=== PATIENT | female | born 1945 | race Caucasian/White ===

== ENCOUNTER 2017-10-05 10:34 | Outpatient (CLI) | payer MEDICARE | END 2017-10-05 10:35 | disposition home or self-care (01) | LOC: BICMAMMO 10:34 | PROVIDERS: ATTEND Family Medicine | DX: Z12.31 Encounter for screening mammogram for malignant neoplasm of breast (principal); Z80.3 Family history of malignant neoplasm of breast | CPT/HCPCS: 77063; 77067 ==

== ENCOUNTER 2018-07-30 12:58 | Outpatient (CLI) | payer MEDICARE ==
--- NOTE | 2018-07-30 15:50 | ULT ---
BILATERAL RENAL ULTRASOUND: HISTORY: Renal cyst. FINDINGS: Correlation is made with the CT scan of 02/10/2017. The right kidney measures 10.3 cm in length and the left kidney measures 10.1 cm in length. No solid or cystic mass, shadowing calculus, or hydronephrosis is seen on either side. The urinary bladder i s unremarkable with a volume of 252 cc. IMPRESSION: Normal exam. POS: [facility]
--- NOTE | 2018-07-30 15:56 | ULT ---
ULTRASOUND THYROID: DATE: 07/30/2018. HISTORY: Thyroid nodule. COMPARISON: None available. FINDINGS: Isthmus: 0.4 cm anteroposterior. Right lobe: 4.7 x 1.3 x 1.6 cm. Left lobe: 4.7 1.7 x 1.7 cm. The dominant nodule is a 1.9 x 1.3 x 0.9 cm lesion located at the anterior aspect of left lobe mid po le. Composition: Spongiform, 0 points. Echogenicity: Hypoechoic, 2 points. Shape: Wider than tall, 0 points. Margin: Smooth, 0 points. Echogenic foci: None, 0 points. TIRADS category 1: Benign (spongiform nodule). No FNA and no followup necessary. There are a few other nodules that are all less than 1 cm in size, at least 2 in the right mid pole, and at least 2 others in the left mid and upper poles. IMPRESSION: 1. TIRADS category 1: benign. 2. No followup and no fine needle aspiration recommended. POS: [facility]
== END 2018-07-30 12:59 | disposition home or self-care (01) ==
LOC: BICULT 12:58
PROVIDERS: ATTEND Family Medicine
DX: E04.1 Nontoxic single thyroid nodule (principal); N28.1 Cyst of kidney, acquired
CPT/HCPCS: 76536; 76770

== ENCOUNTER 2018-10-08 09:49 | Outpatient (CLI) | payer MEDICARE | END 2018-10-08 09:50 | disposition home or self-care (01) | LOC: BICMAMMO 09:49 | PROVIDERS: ATTEND Obstetrics & Gynecology | DX: Z12.31 Encounter for screening mammogram for malignant neoplasm of breast (principal); Z80.3 Family history of malignant neoplasm of breast | CPT/HCPCS: 77063; 77067 ==

== ENCOUNTER 2019-10-09 11:37 | Outpatient (CLI) | payer MEDICARE ==
--- NOTE | 2019-10-09 12:51 | MMO ---
Bilateral MAMMO Bilat Screen [facility]. CLINICAL HISTORY: Patient is 74 years old and is seen for screening. The patient has the following family history of breast cancer: sister, at age 65. The patient has no personal history of cancer. VIEWS: The views performed were: bilateral craniocaudal with tomosynthesis and bilateral mediolateral oblique with tomosynthesis. FILMS COMPARED: The present examination has been compared to prior imaging studies performed at [facility] on 07/16/2015, 08/05/2016, 10/05/2017 and 10/08/2018. This study has been interpreted with the assistance of computer-aided detection. MAMMOGRAM FINDINGS: The breasts are heterogeneously dense, which could obscure a lesion on mammography. There are no suspicious masses, suspicious calcifications, or new areas of architectural distortion. IMPRESSION: THERE IS NO MAMMOGRAPHIC EVIDENCE OF MALIGNANCY. A ROUTINE FOLLOW-UP MAMMOGRAM IN 1 YEAR IS RECOMMENDED. THE RESULTS OF THIS EXAM WERE SENT TO THE PATIENT. ACR BI-RADS Category 1 - Negative MAMMOGRAPHY NOTE: 1. A negative mammogram report should not delay a biopsy if a dominant of clinically suspicious mass is present. 2. Approximately 10% to 15% of breast cancers are not detected by mammography. 3. Adenosis and dense breasts may obscure an underlying neoplasm. Reported by: FELA FRASER MD Electonically Signed: [id number]
== END 2019-10-09 11:38 | disposition home or self-care (01) ==
LOC: BICMAMMO 11:37
PROVIDERS: ATTEND Family Medicine
DX: Z12.31 Encounter for screening mammogram for malignant neoplasm of breast (principal); Z80.3 Family history of malignant neoplasm of breast
CPT/HCPCS: 77063; 77067

== ENCOUNTER 2020-10-12 13:10 | Outpatient (CLI) | payer MEDICARE ==
--- NOTE | 2020-10-12 14:23 | MMO ---
Bilateral MAMMO Bilat Screen [facility]. CLINICAL HISTORY: Patient is 75 years old and is seen for screening. The patient has the following family history of breast cancer: sister, at age 65. The patient has no personal history of cancer. VIEWS: The views performed were: bilateral craniocaudal with tomosynthesis and bilateral mediolateral oblique with tomosynthesis. FILMS COMPARED: The present examination has been compared to prior imaging studies performed at [facility] on 08/05/2016, 10/05/2017, 10/08/2018 and 10/09/2019. This study has been interpreted with the assistance of computer-aided detection. MAMMOGRAM FINDINGS: The breasts are heterogeneously dense, which could obscure a lesion on mammography. There are no suspicious masses, suspicious calcifications, or new areas of architectural distortion. IMPRESSION: THERE IS NO MAMMOGRAPHIC EVIDENCE OF MALIGNANCY. A ROUTINE FOLLOW-UP MAMMOGRAM IN 1 YEAR IS RECOMMENDED. THE RESULTS OF THIS EXAM WERE SENT TO THE PATIENT. ACR BI-RADS Category 1 - Negative MAMMOGRAPHY NOTE: 1. A negative mammogram report should not delay a biopsy if a dominant of clinically suspicious mass is present. 2. Approximately 10% to 15% of breast cancers are not detected by mammography. 3. Adenosis and dense breasts may obscure an underlying neoplasm. Reported by: FELA FRASER MD Electonically Signed: [id number]
== END 2020-10-12 13:11 | disposition home or self-care (01) ==
LOC: BICMAMMO 13:10
PROVIDERS: ATTEND Family Medicine
DX: Z12.31 Encounter for screening mammogram for malignant neoplasm of breast (principal); Z80.3 Family history of malignant neoplasm of breast
CPT/HCPCS: 77063; 77067

== ENCOUNTER 2021-10-14 13:33 | Outpatient (CLI) | payer MEDICARE | END 2021-10-14 13:34 | disposition home or self-care (01) | LOC: BICMAMMO 13:33 | PROVIDERS: ATTEND Family Medicine | DX: Z12.31 Encounter for screening mammogram for malignant neoplasm of breast (principal); Z80.3 Family history of malignant neoplasm of breast | CPT/HCPCS: 77063; 77067 ==

== ENCOUNTER 2022-03-08 16:10 | Observation (INO) | payer MEDICARE ==
[2022-03-08 18:35] VITALS: BMI 26.3
[2022-03-08 20:50] LABS: Anion Gap 13 mmol/L (10-20); BUN (Urea Nitrogen) 16 mg/dL (9.8-20.1); Calc. Creatinine Clearance 66 mL/min (70-130); Calcium 8.7 mg/dL (7.8-10.44); Carbon Dioxide 26 mmol/L (23-31); Chloride 103 mmol/L (98-107); Glucose 105 mg/dL (83-110); Magnesium 2.1 mg/dL (1.6-2.6); Potassium 3.4 mmol/L (3.5-5.1); Sodium 139 mmol/L (136-145)
[2022-03-08] MEDS ORDERED: Ondansetron PF 4 MG/2 ML Vial IVP PRN (21:13)
[2022-03-08] MEDS ORDERED: Acetaminophen 650 MG Suppository PR PRN (21:13)
[2022-03-08] MEDS ORDERED: Acetaminophen 325 MG TAB PO PRN (21:13)
[2022-03-08] MEDS ORDERED: Ondansetron ODT 4 MG TAB PO PRN (21:13)
[2022-03-08] MEDS ORDERED: Electrolyte Replacement Protocol 1 EACH FS PRN (21:15)
[2022-03-08] MEDS: Potassium Chloride 20 MEQ in Premix Bag 1 BAG IVPB SCH (22:25)
[2022-03-09] MEDS: Potassium Chloride 20 MEQ in Premix Bag 1 BAG IVPB SCH (01:27)
[2022-03-09 05:15] LABS: #Eosinphils 0.1 thou/uL (0.0-0.7); #Monocytes 0.7 thou/uL (0.11-0.59); #Neutrophils 5.8 thou/uL (1.40-6.50); %Basophils 0.4 % (0.0-1.0); %Eosinophils 1.5 % (0.0-10.0); %Lymphocytes 23.2 % (21.0-51.0); %Neutrophils 66.8 % (42.0-75.0); Hemoglobin 13.4 g/dL (12.0-16.0); Mean Corpuscular HGB CONC 33.4 g/dL (32.0-36.0); Mean Corpuscular Hemoglobin 29.6 pg (27.0-31.0); Mean Corpuscular Volume 88.6 fL (78.0-98.0); Platelet Count 299 thou/uL (130-400); RBC Distribution Width 13.2 % (11.5-14.5); Red Blood Cell (RBC) Count 4.54 mill/uL (4.20-5.40); White Blood Cell (WBC) Count 8.7 thou/uL (4.8-10.8)
[2022-03-09 05:32] LABS: Anion Gap 14 mmol/L (10-20); BUN (Urea Nitrogen) 16 mg/dL (9.8-20.1); Calc. Creatinine Clearance 69 mL/min (70-130); Carbon Dioxide 25 mmol/L (23-31); Chloride 107 mmol/L (98-107); Glucose 94 mg/dL (83-110); Potassium 3.8 mmol/L (3.5-5.1); Sodium 142 mmol/L (136-145)
[2022-03-09 15:31] VITALS: BP 142/64; TEMP 97.9
[2022-03-09] MEDS ORDERED: Simvastatin 10 MG TAB PO SCH (21:00)
[2022-03-10] MEDS ORDERED: Cholecalciferol 1,000 UNITS (25 MCG) TAB PO SCH (09:00)
== END 2022-03-09 18:10 | disposition home or self-care (01) ==
LOC: 2SW 16:10
PROVIDERS: ADMIT Internal Medicine; ATTEND Internal Medicine
DX: I47.1 Supraventricular tachycardia (principal); E87.6 Hypokalemia; I10 Essential (primary) hypertension; I34.1 Nonrheumatic mitral (valve) prolapse; E78.5 Hyperlipidemia, unspecified; I87.2 Venous insufficiency (chronic) (peripheral); R19.7 Diarrhea, unspecified; Z79.899 Other long term (current) drug therapy; Z20.822 Contact with and (suspected) exposure to COVID-19
CPT/HCPCS: 80048 ×2; 83735; 85025; U0003; U0005; 36415; 96365; 96366; G0378; J3480

== ENCOUNTER 2022-08-17 12:30 | Outpatient (CLI) | payer MEDICARE | END 2022-08-17 12:31 | disposition home or self-care (01) | LOC: ULT 12:30 | PROVIDERS: ATTEND Family Medicine | DX: N28.89 Other specified disorders of kidney and ureter (principal); N28.1 Cyst of kidney, acquired | CPT/HCPCS: 76770 ==

== ENCOUNTER 2022-10-20 09:41 | Outpatient (CLI) | payer MEDICARE | END 2022-10-20 09:42 | disposition home or self-care (01) | LOC: BICMAMMO 09:41 | PROVIDERS: ATTEND Family Medicine | DX: Z12.31 Encounter for screening mammogram for malignant neoplasm of breast (principal); Z80.3 Family history of malignant neoplasm of breast | CPT/HCPCS: 77063; 77067 ==

== ENCOUNTER 2023-01-04 11:52 | Outpatient (CLI) | payer MEDICARE | END 2023-01-04 11:53 | disposition home or self-care (01) | LOC: ULT 11:52 | PROVIDERS: ATTEND Family Medicine | DX: N28.1 Cyst of kidney, acquired (principal) | CPT/HCPCS: 76770 ==

== ENCOUNTER 2023-03-24 08:35 | Outpatient (CLI) | payer MEDICARE | END 2023-03-24 08:36 | disposition home or self-care (01) | LOC: MRI 08:35 | PROVIDERS: ATTEND Family Medicine | DX: N28.89 Other specified disorders of kidney and ureter (principal) | CPT/HCPCS: 74183 ==

== ENCOUNTER 2023-10-12 09:16 | Outpatient (CLI) | payer MEDICARE | END 2023-10-12 09:17 | disposition home or self-care (01) | LOC: MRI 09:16 | PROVIDERS: ATTEND Urology | DX: N28.1 Cyst of kidney, acquired (principal) | CPT/HCPCS: 74183 ==